=== PATIENT | female | born 1985 ===

== ENCOUNTER 2016-05-29 23:46 | Emergency (ER) | payer SELFPAY ==
--- NOTE | 2016-05-29 23:59 | ER Document Report ---
ED Medical Screen (RME) - General Stated Complaint: HAND LACERATION Mode of Arrival: Ambulatory Information source: Patient Notes: Patient presents with right palmar laceration after she cut her hand on can of cat food. Tetanus Is up-to-date - Related Data Allergies/Adverse Reactions: No Known Allergies Allergy (Unverified 05/30/16 00:01) Physical Exam - Vital signs Vitals: Temp Pulse Resp BP Pulse Ox 97.9 F 76 18 126/77 H 99 05/29/16 23:59 05/29/16 23:59 05/29/16 23:59 05/29/16 23:59 05/29/16 23:59 Course - Vital Signs Vital signs: Temp Pulse Resp BP Pulse Ox 97.9 F 76 18 126/77 H 99 05/29/16 23:59 05/29/16 23:59 05/29/16 23:59 05/29/16 23:59 05/29/16 23:59 Doctor's Discharge - Discharge Condition: Stable Disposition: ELOPED
[2016-05-30 00:01] VITALS: BP 126/77
== END 2016-05-30 01:30 | disposition left against medical advice (07) ==
LOC: ER 23:46
DX: S61.411A Laceration without foreign body of right hand, initial encounter (principal); W26.8XXA Contact with other sharp object(s), not elsewhere classified, initial encounter; Y93.89 Activity, other specified; Z53.20 Procedure and treatment not carried out because of patient's decision for unspecified reasons
CPT/HCPCS: 99281